=== PATIENT | male | born 1950 | race Caucasian/White ===

== ENCOUNTER 2024-06-19 17:49 | Observation (INO) ==
[2024-06-19] MEDS: cefTRIAXone 1 gm/50 mL D5W 1 GM/50 ML BAG IV ONE (18:38)
[2024-06-19] MEDS ORDERED: Iohexol 180 (CONTRAST) 10 ML SDV IV ONE (19:04)
[2024-06-19] MEDS ORDERED: fentaNYL 100 mcg/2 ml 50 MCG/ML VIAL ONE (19:48)
[2024-06-19] MEDS ORDERED: Phenylephrine 40 mcg/mL 10mL (400mcg) SYRINGE ONE (19:55)
[2024-06-19] MEDS ORDERED: Dexamethasone IV 4 MG/ML VIAL 1 ml VIAL ONE (20:02)
[2024-06-19] MEDS ORDERED: Ondansetron 4 mg VIAL 2 MG/ML 2 ml VIAL ONE (20:02)
[2024-06-19] MEDS ORDERED: Propofol 10 MG/ML 20 ML BTL ONE (20:02)
[2024-06-19] MEDS ORDERED: Lidocaine 2% PF 5 ML VIAL ONE (20:02)
[2024-06-19] MEDS ORDERED: Naloxone 0.4 mg VIAL 0.4 mg/ml 1 ml VIAL IV PRN (20:23)
[2024-06-19] MEDS ORDERED: fentaNYL 100 mcg/2 ml 50 MCG/ML VIAL IV PRN (20:23)
[2024-06-19] MEDS ORDERED: Ondansetron 4 mg VIAL 2 MG/ML 2 ml VIAL IV PRN ×2 (20:23→21:13)
[2024-06-19] MEDS ORDERED: Polyethylene Glycol 3350 17 GM PACKET PO PRN (21:13)
[2024-06-19] MEDS: Metoclopramide 5 MG/ML VIAL (10 mg) IV SLOW PU ONE (21:49)
[2024-06-20 06:03] LABS: ABS Neutrophils 9.6 10^3/uL (1.5-7.6); ABS Nucleated RBC 0.03 10^3/ul; Hematocrit 42.8 % (38-53); Hemoglobin 14.5 g/dL (13.2-16.3); Lymphocyte % 8.5 %; Mean Corpuscular Hemoglobin 32.6 pg (27-33); Mean Corpuscular Hgb Conc 33.8 g/dL (31-36); Mean Corpuscular Volume 96.3 fL (80-97); Mean Platelet Volume 8.2 fL (7.5-11.2); Nucleated Red Blood Cells % 0.2 %/100WBC (0.0-0.8); Platelet Count 139 10^3/uL (150-450); Red Blood Count 4.44 10^6/uL (4.06-5.63); Red Cell Distribution Width 14.3 % (12-17); White Blood Count 11.6 10^3/uL (3.6-10.2)
[2024-06-20 06:26] LABS: Anion Gap 10 mmol/L (2-16); Blood Urea Nitrogen 17 mg/dL (6-24); CO2 Carbon Dioxide 20 mmol/L (22-32); Calcium 8.1 mg/dL (8.6-10.3); Chloride 105 mmol/L (101-111); Creatinine, Serum 0.97 mg/dL (0.67-1.17); Glucose 140 mg/dL (70-100); Sodium 135 mmol/L (135-145); eGFR CKD-EPI 83.5 (>60)
[2024-06-20] MEDS: Aspirin EC 81 mg TAB.EC (enteric coated) PO SCH (09:20)
[2024-06-20 10:04] VITALS: BP 119/81
[2024-06-20] MEDS ORDERED: cefTRIAXone 1 gm/50 mL D5W 1 GM/50 ML BAG IV SCH (18:00)
== END 2024-06-20 11:02 | disposition home or self-care (01) ==
LOC: EDHOLD 17:49 → ED 17:49 → EDHOLD 19:25 → MEDTELE 20:50
PROVIDERS: ADMIT Internal Medicine; ATTEND Internal Medicine